=== PATIENT | female | born 1985 | race Caucasian/White ===

== ENCOUNTER 2017-04-05 11:42 | Emergency (ER) | payer BC, OTHER ==
[2017-04-05 11:53] VITALS: BP 124/77
[2017-04-05] MEDS ORDERED: Ketorolac 60 MG/2 ML SDV IM ONE (12:11)
--- NOTE | 2017-04-05 12:30 | EDM.PDOC ---
ED HPI GENERAL MEDICAL PROBLEM - General Chief Complaint: Back Pain or Injury Stated Complaint: LOW BACK INJURY Time Seen by Provider: 04/05/17 11:52 Source of Information: Reports: Patient History Limitations: Reports: No Limitations - History of Present Illness INITIAL COMMENTS - FREE TEXT/NARRATIVE: The patient presents with right lower back pain. This happened at work. 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 He had a walker and she had help. She had one hand on the gate belt and she bent over to help the patient with his pants and he went limp and she caught him and hurt her right back. Initially the pain was not that bad but it has gotten worse as the day goes on. She has pain shooting down her right leg and she has numbness to the proximal inner thigh. She has no bowel or bladder problems. With her last she had trouble with her back. Onset: Sudden Duration: Hour(s): (at 8:30) Location: Reports: Back (right lower) Quality: Reports: Sharp Severity: Severe Improves with: Reports: None Worsens with: Reports: Movement Context: Reports: Lifting (a patient) Associated Symptoms: Reports: No Other Symptoms Treatments [employer]MENT [employer]NAGER: Reports: Acetaminophen Lower Back Pain Score (Numeric/FACES): 7 - Related Data Allergies Allergy/AdvReac Type Severity Reaction Status Date / Time No Known Allergies Allergy Verified 02/21/16 23:40 Home Meds: Home Meds LORazepam [Ativan] 0.5 mg PO TID PRN 12/09/14 [History] Ondansetron [Zofran ODT] 4 mg PO Q6H PRN #2 tab.dis 12/09/14 [Rx] Venlafaxine [Effexor XR] 150 mg PO DAILY 12/09/14 [History] Levothyroxine Sodium [Synthroid] 25 mcg PO ACBREAKFAST 12/30/15 [History] Pantoprazole [Protonix] 40 mg PO ACBREAKFAST 12/30/15 [History] Hydrocodone/Acetaminophen [Hydrocodon-Acetaminophen 5-325] 1 - 2 each PO Q6HR PRN #20 tablet 04/05/17 [Rx] Methocarbamol [Robaxin-750] 750 mg PO Q4HR PRN #20 tablet 04/05/17 [Rx] Past Medical History - Past Health History Medical/Surgical History: Denies Medical/Surgical History Gastrointestinal History: Reports: GERD, [employer]IAN History: Reports: Psychiatric History: Reports: Anxiety, Depression Endocrine/Metabolic History: Reports: Hypothyroidism - Past Surgical History GI Surgical History: Reports: Cholecystectomy Social & Family History - Tobacco Use Smoking Status *Q: Current Every Day Smoker Years of Tobacco use: 10 Packs/Tins Daily: 0.1 Used Tobacco, but Quit: Yes Month Tobacco Last Used: 1 week ago - Caffeine Use Caffeine Use: Reports: Coffee - Alcohol Use Days Per Week of Alcohol Use: 0 Number of Drinks Per Day: 1 Total Drinks Per Week: 0 - Recreational Drug Use Recreational Drug Use: No - Living Situation & Occupation Living situation: Reports: , with Family Occupation: Employed ED ROS GENERAL - Review of Systems Review Of Systems: See Below Constitutional: Reports: No Symptoms HEENT: Reports: No Symptoms Respiratory: Reports: No Symptoms Cardiovascular: Reports: No Symptoms Endocrine: Reports: No Symptoms GI/Abdominal: Reports: No Symptoms : Reports: No Symptoms Musculoskeletal: Reports: Back Pain (Right lower) ED EXAM,LOWER BACK PAIN/INJURY - Physical Exam Exam: See Below Exam Limited By: No Limitations General Appearance: Alert, No Apparent Distress Ears: Normal External Exam Nose: Normal Inspection Head: Atraumatic, Normocephalic Neck: Normal Inspection Respiratory/Chest: No Respiratory Distress, Lungs Clear, Normal Breath Sounds Cardiovascular: Regular Rate, Rhythm, No Edema, No Murmur GI/Abdominal: Soft, Non-Tender, No Organomegaly, No Mass Back Exam: Other (Mild pain upon palpation to her right lower back) Extremities: Normal Inspection Neurological: Alert, Oriented x 3, Other (Numbness to the right proximal inner thigh but good strength bilaterally.) Course - Vital Signs Last Recorded V/S: Last Vital Signs Temp 97.5 F 04/05/17 11:48 Pulse 102 H 04/05/17 11:48 Resp 16 04/05/17 11:48 BP 124/77 04/05/17 11:48 Pulse Ox 98 04/05/17 11:48 - Orders/Labs/Meds Meds: Medications Discontinued Medications Generic Name Dose Route Start Last Admin Trade Name Freq PRN Reason Stop Dose Admin Ketorolac Tromethamine 60 mg 04/05/17 12:11 04/05/17 12:18 Toradol IM 04/05/17 12:12 60 mg ONETIME ONE Administration - Re-Assessments/Exams Free Text/Narrative Re-Assessment/Exam: 04/05/17 12:31 I ordered a shot of toradol. I will get her on some robaxin and hydrocodone. I will also refer her to PT. Departure - Departure Time of Disposition: 12:35 Disposition: Home, Self-Care 01 Condition: Good Clinical Impression: Lumbar strain Qualifiers: Encounter type: initial encounter Qualified Code(s): S39.012A - Strain of muscle, fascia and tendon of lower back, initial encounter Low back pain Qualifiers: Chronicity: acute Back pain laterality: right Sciatica presence: with sciatica Sciatica laterality: sciatica of right side Qualified Code(s): M54.41 - Lumbago with sciatica, right side - Discharge Information Prescriptions: Methocarbamol [Robaxin-750] 750 mg PO Q4HR PRN #20 tablet PRN Reason: Pain Hydrocodone/Acetaminophen [Hydrocodon-Acetaminophen 5-325] 1 - 2 each PO Q6HR PRN #20 tablet PRN Reason: Pain Referrals: Jasmin De Paz PA [Primary Care Provider] - 1 Week Forms: ED Department Discharge Additional Instructions: Take the robaxin and hydrocodone as needed for pain. You may also take an antiinflammatory such as motrin. Ice your back for 15 minutes every other hour while awake for 2 days. Please return if you are worse. Follow up with physical therapy.
== END 2017-04-05 12:59 | disposition home or self-care (01) ==
LOC: JD.ED 11:42
DX: S39.012A Strain of muscle, fascia and tendon of lower back, initial encounter (principal); M54.41 Lumbago with sciatica, right side; K21.9 Gastro-esophageal reflux disease without esophagitis; F41.9 Anxiety disorder, unspecified; F32.9 Major depressive disorder, single episode, unspecified; E03.9 Hypothyroidism, unspecified; F17.210 Nicotine dependence, cigarettes, uncomplicated; Z90.49 Acquired absence of other specified parts of digestive tract; Z79.899 Other long term (current) drug therapy; X50.9XXA Other and unspecified overexertion or strenuous movements or postures, initial encounter; Y99.0 Civilian activity done for income or pay
CPT/HCPCS: 96372; 99283; J1885

== ENCOUNTER 2017-08-08 14:32 | Emergency (ER) | payer BC ==
[2017-08-08 15:09] VITALS: BP 124/97
== END 2017-08-08 17:55 ==
LOC: JD.ED 14:32
DX: Z53.21 Procedure and treatment not carried out due to patient leaving prior to being seen by health care provider (principal)
CPT/HCPCS: 99284-25